=== PATIENT | male | born 1950 | race African-American/Black ===

== ENCOUNTER 2016-05-29 11:46 | Emergency (ER) | payer OTHER, MEDICARE ==
[2016-05-29] MEDS ORDERED: ASPIRIN 81 MG TABLET, CHEWABLE PO ONE (12:02)
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
[2016-05-29 12:28] LABS: ABSOLUTE EOSINOPHILS # (AUTO) 0.4 10^3/uL (0.0-0.6); ABSOLUTE LYMPHOCYTES (AUTO) 0.5 10^3/uL (0.5-4.7); ABSOLUTE MONOCYTES (AUTO) 0.6 10^3/uL (0.1-1.4); ABSOLUTE NEUT (AUTO) 7.1 10^3/uL (1.7-8.2); BASOPHILS % (AUTO) 0.6 % (0-2); EOSINOPHILS % (AUTO) 4.9 % (0-6); HEMATOCRIT 32.7 % (37.9-51.0); HEMOGLOBIN 10.3 g/dL (13.5-17.0); HGB HCT DIFFERENCE -1.8; MEAN CORPUSCULAR HEMOGLOBIN 25.8 pg (27.0-33.4); MEAN CORPUSCULAR HGB CONC 31.6 g/dL (32.0-36.0); MEAN CORPUSCULAR VOLUME 82 fl (80-97); MONOCYTES % (AUTO) 6.5 % (3-13); RED CELL DISTRIBUTION WIDTH 21.6 % (11.5-14.0); WHITE BLOOD COUNT 8.6 10^3/uL (4.0-10.5)
[2016-05-29 12:33] LABS: PROTHROMBIN TIME 13.9 SEC (11.4-15.4)
[2016-05-29 12:36] LABS: D-DIMER 0.62 ug/mL (0.00-0.50)
[2016-05-29 12:46] LABS: ALANINE AMINOTRANSFERASE 20 U/L (21-72); ALBUMIN 3.5 g/dL (3.5-5.0); ALKALINE PHOSPHATASE 69 U/L (38-126); ANION GAP 14 (5-19); ASPARTATE AMINO TRANSFERASE 12 U/L (17-59); BILIRUBIN,TOTAL 0.5 mg/dL (0.2-1.3); BLOOD UREA NITROGEN 54 mg/dL (7-20); CALCIUM 8.4 mg/dL (8.4-10.2); CARBON DIOXIDE 27 mmol/L (22-30); CHLORIDE 98 mmol/L (98-107); CREATINE KINASE 65 U/L (55-170); CREATININE RESULT 9.15 mg/dL (0.52-1.25); GLUCOSE 108 mg/dL (75-110); POTASSIUM 4.8 mmol/L (3.6-5.0); SODIUM 139.4 mmol/L (137-145); TOTAL PROTEIN 6.2 g/dL (6.3-8.2)
[2016-05-29 12:57] LABS: CREATINE KINASE MB 1.01 ng/mL (<4.55)
[2016-05-29 13:00] LABS: TROPONIN I 0.039 ng/mL
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
[2016-05-29] MEDS ORDERED: AZITHROMYCIN 250 MG TABLET PO ONE (14:07)
--- NOTE | 2016-05-29 16:07 | EKG REPORT ---
SEVERITY:- ABNORMAL ECG - SINUS RHYTHM ATRIAL PREMATURE COMPLEX ABNRM R PROG, CONSIDER ASMI OR LEAD PLACEMENT NONSPECIFIC T ABNORMALITIES, LATERAL LEADS : Confirmed by: Emily Arizmendi MD 29-May-2016 16:07:13
[2016-05-29] MEDS ORDERED: CARVEDILOL 12.5 MG TABLET PO ONE (19:21)
[2016-05-29] MEDS ORDERED: ISOSORBIDE MONONITRATE 20 MG TABLET PO ONE (19:22)
[2016-05-29] MEDS ORDERED: AMLODIPINE BESYLATE 10 MG TABLET PO ONE (19:22)
[2016-05-29] MEDS ORDERED: HYDRALAZINE HCL 50 MG TABLET PO ONE (19:23)
[2016-05-29 22:14] VITALS: BP 158/85
== END 2016-05-29 22:56 | disposition home or self-care (01) ==
LOC: ER 11:46
DX: J18.9 Pneumonia, unspecified organism (principal); R07.9 Chest pain, unspecified; Z99.2 Dependence on renal dialysis
CPT/HCPCS: 93005; 99285; 36415; 82553; 82550; 85025; 85610; 80053; 84484; 85379; 83880; 71010; 78582; 93010; A9540; A9567; J3490; Q9969